=== PATIENT | female | born 1995 | race Caucasian/White ===

== ENCOUNTER 2020-09-07 14:10 | Outpatient (CLI) | payer BC, SELFPAY ==
[2020-09-07 14:53] LABS: Basophils Percent Auto 0.4 % (0.2-1.2); Eosinophils Absolute Auto 0.1 K/mm3 (0-0.3); Eosinophils Percent Auto 0.5 % (0-4.4); Hematocrit 39.7 % (37.0-47.0); Hemoglobin 13.8 g/dL (12.0-15.0); Immature Granulocyte Absolute 0.02 K/mm3 (0.00-0.031); Immature Granulocyte Percent A 0.2 % (0-0.5); Lymphocytes Absolute Auto 2.44 K/mm3 (0.9-3.2); Lymphocytes Percent Auto 25.5 % (18.3-44.2); Mean Corpuscular HGB Conc 34.8 g/dl (32-36); Mean Corpuscular Hemoglobin 31.7 pg (26-34); Mean Corpuscular Volume 91.1 fl (80-100); Mean Platelet Volume 9.9 fl (7.4-10.4); Monocytes Absolute Auto 0.5 K/mm3 (0.1-0.6); Neutrophils Absolute Auto 6.5 K/mm3 (1.3-6.7); Neutrophils Percent Auto 68.4 % (45.5-73.1); Platelet Count Result 290 k/mm3 (150-375); Red Blood Count 4.36 M/mm3 (4.2-5.4); Red Cell Distribution Width 10.8 % (11.5-14.5); White Blood Count 9.6 K/mm3 (4.5-10.0)
[2020-09-07 17:12] LABS: HIV 1/2 Ab P24 Ag Result Negative (Negative)
[2020-09-07 17:17] LABS: Vitamin D 25 Hydroxy 39.3 ng/mL
[2020-09-07 17:34] LABS: Hepatitis B Surface Antigen Negative (Negative); Rubella IgG Antibody 35.5 IU/ML
[2020-09-07 17:47] LABS: Hepatitis C Virus Antibody Negative (Negative)
[2020-09-08 10:51] LABS: Rapid Plasma Reagin Non-Reactive (NonReactive)
[2020-09-14 01:00] LABS: Hematocrit 39.4 % (35.0-45.0); Hemoglobin 13.6 g/dL (11.7-15.5); MCH 31.9 pg (27.0-33.0); MCV 92.7 FL (80.0-100.0); RDW 11.6 % (11.0-15.0); Red Blood Cell Count 4.26 Mill/uL (3.80-5.10)
== END 2020-09-07 14:11 | disposition home or self-care (01) ==
PROVIDERS: Visit Provider Obstetrics & Gynecology
DX: Z34.90 Encounter for supervision of normal pregnancy, unspecified, unspecified trimester (principal); Z3A.00 Weeks of gestation of pregnancy not specified
CPT/HCPCS: 36415; 82306; 83021; 84443; 85025; 86592; 86703; 86762; 86787; 86803; 86850; 86900; 86901; 87340; G0432

== ENCOUNTER 2021-01-26 08:37 | Outpatient (CLI) | payer BC, SELFPAY ==
[2021-01-26 19:14] LABS: Basophils Absolute Auto 0.1 K/mm3 (0.0-0.1); Basophils Percent Auto 0.4 % (0.2-1.2); Eosinophils Absolute Auto 0.1 K/mm3 (0-0.3); Eosinophils Percent Auto 0.8 % (0-4.4); Hematocrit 37.6 % (37.0-47.0); Hemoglobin 12.5 g/dL (12.0-15.0); Immature Granulocyte Absolute 0.04 K/mm3 (0.00-0.031); Immature Granulocyte Percent A 0.4 % (0-0.5); Lymphocytes Absolute Auto 2.27 K/mm3 (0.9-3.2); Lymphocytes Percent Auto 20.3 % (18.3-44.2); Mean Corpuscular HGB Conc 33.2 g/dl (32-36); Mean Corpuscular Hemoglobin 31.6 pg (26-34); Mean Corpuscular Volume 94.9 fl (80-100); Monocytes Absolute Auto 0.6 K/mm3 (0.1-0.6); Monocytes Percent Auto 5.6 % (2.6-8.5); Neutrophils Absolute Auto 8.1 K/mm3 (1.3-6.7); Neutrophils Percent Auto 72.5 % (45.5-73.1); Platelet Count Result 299 k/mm3 (150-375); Red Blood Count 3.96 M/mm3 (4.2-5.4); Red Cell Distribution Width 11.9 % (11.5-14.5); White Blood Count 11.2 K/mm3 (4.5-10.0)
[2021-01-26 21:53] LABS: Glucose 1 Hour PP 50gm Dose 90 mg/dL
== END 2021-01-26 08:38 | disposition home or self-care (01) ==
LOC: ANHBWCLAB 08:39
PROVIDERS: Visit Provider Obstetrics & Gynecology
DX: Z34.90 Encounter for supervision of normal pregnancy, unspecified, unspecified trimester (principal); Z3A.23 23 weeks gestation of pregnancy
CPT/HCPCS: 36415; 82947; 85025

== ENCOUNTER 2021-03-04 09:55 | Outpatient (CLI) | payer BC, SELFPAY ==
[2021-03-04 10:13] LABS: Basophils Absolute Auto 0.1 K/mm3 (0.0-0.1); Basophils Percent Auto 0.6 % (0.2-1.2); Eosinophils Absolute Auto 0.1 K/mm3 (0-0.3); Eosinophils Percent Auto 0.6 % (0-4.4); Hematocrit 38.1 % (37.0-47.0); Hemoglobin 13.3 g/dL (12.0-15.0); Immature Granulocyte Absolute 0.04 K/mm3 (0.00-0.031); Immature Granulocyte Percent A 0.4 % (0-0.5); Lymphocytes Absolute Auto 2.61 K/mm3 (0.9-3.2); Lymphocytes Percent Auto 24.2 % (18.3-44.2); Mean Corpuscular HGB Conc 34.9 g/dl (32-36); Mean Corpuscular Hemoglobin 32.9 pg (26-34); Mean Corpuscular Volume 94.3 fl (80-100); Monocytes Absolute Auto 0.7 K/mm3 (0.1-0.6); Monocytes Percent Auto 6.2 % (2.6-8.5); Neutrophils Absolute Auto 7.3 K/mm3 (1.3-6.7); Platelet Count Result 235 k/mm3 (150-375); Red Blood Count 4.04 M/mm3 (4.2-5.4); Red Cell Distribution Width 11.6 % (11.5-14.5); White Blood Count 10.8 K/mm3 (4.5-10.0)
[2021-03-04 11:06] LABS: HIV 1/2 Ab P24 Ag Result Negative (Negative)
[2021-03-07 07:23] LABS: Rapid Plasma Reagin Non-Reactive (NonReactive)
== END 2021-03-04 09:56 | disposition home or self-care (01) ==
PROVIDERS: PCP Family Medicine; Visit Provider Obstetrics & Gynecology
DX: Z36.89 Encounter for other specified antenatal screening (principal); Z3A.32 32 weeks gestation of pregnancy
CPT/HCPCS: 36415; 85025; 86592; 86703; G0432

== ENCOUNTER 2021-04-11 13:03 | Inpatient (IN) | payer BC, SELFPAY ==
[2021-04-11] VITALS (56 sets, daily range): BP systolic 126–181; BP diastolic 79–123; PULSE 50–85; TEMP 37–37.2; O2SAT 97–100
--- NOTE | ~2021-04-11 | XR_ITS ---
EXAMINATION: XR chest 1V portable 04/12/2021 15:49 INDICATION: Shortness of breath. Preeclampsia. Hypertension. PROCEDURE: AP portable chest COMPARISON: No prior studies for comparison. FINDINGS: The lungs are clear. The cardiomediastinal silhouette is within normal limits. There are no pleural effusions. There is no pneumothorax suspected. IMPRESSION: 1: NO ACUTE CARDIOPULMONARY DISEASE. Reviewed, dictated and finalized at location B. 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
[2021-04-11 14:00] LABS: Add Urine Microscopic? NO; Appearance Urine Clear (Clear); Bilirubin Urine Negative (Negative); Blood Urine Negative (Negative); Color Urine Straw (Yellow); Glucose Urine UA Negative (Negative); Ketones Urine Negative (Negative); Leukocyte Esterase Ur Negative LEU/UL (NEGATIVE); Nitrate Urine Negative (Negative); Protein Urine Negative (Negative); Specific Grav Ur 1.005 (1.001-1.035); Urobilinogen Urine Negative mg/dL (<2.0)
[2021-04-11 14:01] LABS: Basophils Absolute Auto 0.1 K/mm3 (0.0-0.1); Basophils Percent Auto 0.7 % (0.2-1.2); Eosinophils Absolute Auto 0.1 K/mm3 (0-0.3); Eosinophils Percent Auto 0.6 % (0-4.4); Hematocrit 36.2 % (37.0-47.0); Hemoglobin 12.6 g/dL (12.0-15.0); Immature Granulocyte Absolute 0.06 K/mm3 (0.00-0.031); Immature Granulocyte Percent A 0.6 % (0-0.5); Immature Platelet Fraction Pct 19.3 % (0.9-11.2); Lymphocytes Absolute Auto 3.18 K/mm3 (0.9-3.2); Lymphocytes Percent Auto 31.9 % (18.3-44.2); Mean Corpuscular HGB Conc 34.8 g/dl (32-36); Mean Corpuscular Hemoglobin 33.2 pg (26-34); Mean Corpuscular Volume 95.5 fl (80-100); Mean Platelet Volume 13.3 fl (7.4-10.4); Monocytes Absolute Auto 0.6 K/mm3 (0.1-0.6); Monocytes Percent Auto 5.5 % (2.6-8.5); Neutrophils Absolute Auto 6.1 K/mm3 (1.3-6.7); Neutrophils Percent Auto 60.7 % (45.5-73.1); Platelet Count Result 157 k/mm3 (150-375); Red Blood Count 3.79 M/mm3 (4.2-5.4); Red Cell Distribution Width 11.7 % (11.5-14.5)
[2021-04-11 14:07] LABS: Alanine Aminotransferase 36 U/L (4-35); Albumin Level 3.7 g/dL (3.5-5.1); Alkaline Phosphatase 148 U/L (38-126); Anion Gap 6 mmol/L (8-16); Aspartate Amino Transferase 38 U/L (14-36); Bilirubin,Total 0.3 mg/dL (0.2-1.3); Blood Urea Nitrogen 19 mg/dL (7-17); Calcium 9.8 mg/dL (8.4-10.2); Carbon Dioxide 22 mmol/L (22-30); Chloride 103 mmol/L (98-107); Estimated Glomerular Filt Rate > 60; Glucose 99 mg/dL (65-110); Potassium 3.8 mmol/L (3.4-5.0); Sodium 131 mmol/L (137-145)
[2021-04-11 15:40] LABS: Creatinine Urine 19.3 mg/dL; Total Protein Urine Random 36 mg/dL; Ur Ttl Prot Creatinine Ratio 1.87 mg/mg (0-0.20)
[2021-04-11 17:36] LABS: INR 0.8
[2021-04-11 17:37] LABS: Partial Thromboplastin Time 25.3 SECONDS (22.3-36.8)
[2021-04-11 17:42] LABS: Fibrinogen 333 mg/dl (215-510)
[2021-04-11] MEDS: LABETALOL HCL INJ 100 MG/20 ML VIAL 20 MG IV PUSH (18:04)
--- NOTE | 2021-04-11 19:22 | LDADM ---
This patient, Gabriella Mello, was admitted to Labor/Delivery/Recovery 104 on 04/11/21 at 13:03. Plans for labor, pain management and were discussed with patient. Patient/family oriented to hospital policies and general routines including ID bracelet, bed and alarms, visiting hours, pain management, procedures, bathroom and other care routines, personal items, smoking policy, room service/diet and guest tray routines, infant security routines, and visiting hours. Patient/Family are encouraged to report perceived risks to care and to ask questions if they do not understand what they are told or what they should do. See OBIX for further documentation.
[2021-04-11] MEDS: LACTATED RINGERS 1,000 ML 125 ML IV CONT (19:34)
[2021-04-11] MEDS: OXYTOCIN 30 UNITS/NS 500 ML 30 UNITS/500 ML BAG 6 UNITS IV CONT (19:36)
[2021-04-11] MEDS: fentaNYL CITRATE INJ (*CRX) 100 MCG/2 ML VIAL 50 MCG IV PUSH (22:24)
[2021-04-12] VITALS (151 sets, daily range): BP systolic 105–175; BP diastolic 31–148; PULSE 42–131; RESP 16–36; TEMP 36.4–37.1; O2SAT 94–100; BMI 25.5
[2021-04-12] MEDS: fentaNYL CITRATE INJ (*CRX) 100 MCG/2 ML VIAL 50 MCG IV PUSH (00:58)
[2021-04-12] MEDS: MAGNESIUM SULF 4 GM/WATER100ML 4 GM/100 ML BAG IVPB (01:17)
--- NOTE | 2021-04-12 01:53 | WPDANESEPP ---
Anes - Eval Pre Procedure Procedure: Labor epidural Date/Time: 04/12/21 01:53 Surgeon: Rakan Preop Diagnosis: Abd pain with contractions Pre Op Diagnosis: MIL Patient Data Age: 25 Gender: F Height: Weight: Last Vital Signs Temp 98.9 F 04/11/21 19:20 Pulse 79 04/12/21 01:52 BP 160/103 H 04/12/21 01:52 Pulse Ox 99 04/12/21 01:49 Allergies Allergy/AdvReac Type Severity Reaction Status Date / Time No Known Allergies Allergy Verified 04/11/21 19:58 Home Medications Medication Instructions Recorded Confirmed Type omega-3 fatty acids 1,000 mg 1,000 mg PO DAILY 08/26/20 04/11/21 History capsule prenat.vits,brian,kei-bfrw-zzwee 1 tablet PO DAILY 08/26/20 04/11/21 History Laboratory Tests 04/11/21 04/11/21 04/11/21 13:43 13:43 13:44 WBC 10.0 K/mm3 K/mm3 (4.5-10.0) RBC 3.79 M/mm3 L M/mm3 (4.2-5.4) Hgb 12.6 g/dL g/dL (12.0-15.0) Hct 36.2 % L % (37.0-47.0) MCV 95.5 fl fl (80-100) MCH 33.2 pg pg (26-34) MCHC 34.8 g/dl g/dl (32-36) RDW 11.7 % % (11.5-14.5) Plt Count 157 k/mm3 k/mm3 (150-375) MPV 13.3 fl H fl (7.4-10.4) Immature Gran % (Auto) 0.6 % H % (0-0.5) Neut % (Auto) 60.7 % % (45.5-73.1) Lymph % (Auto) 31.9 % % (18.3-44.2) [place] % (Auto) 5.5 % % (2.6-8.5) Eos % (Auto) 0.6 % % (0-4.4) Baso % (Auto) 0.7 % % (0.2-1.2) Lymph # (Auto) 3.18 K/mm3 K/mm3 (0.9-3.2) [place] # (Auto) 0.6 K/mm3 K/mm3 (0.1-0.6) Eos # (Auto) 0.1 K/mm3 K/mm3 (0-0.3) Baso # (Auto) 0.1 K/mm3 K/mm3 (0.0-0.1) Abs Immat Gran (auto) 0.06 K/mm3 H K/mm3 (0.00-0.031) Absolute Neuts (auto) 6.1 K/mm3 K/mm3 (1.3-6.7) Absolute Nucleated RBC 0.0 K/mm3 K/mm3 (0.0-0.012) Nucleated RBC % 0.0 % % (0.0-0.2) % Immature Plt Fraction 19.3 % H % (0.9-11.2) PT INR APTT Fibrinogen Sodium 131 mmol/L L mmol/L (137-145) Potassium 3.8 mmol/L mmol/L (3.4-5.0) Chloride 103 mmol/L mmol/L (98-107) Carbon Dioxide 22 mmol/L mmol/L (22-30) Anion Gap 6 mmol/L L mmol/L (8-16) BUN 19 mg/dL H mg/dL (7-17) Creatinine 0.90 mg/dL mg/dL (0.7-1.0) Estim Creat Clear Calc Not Reportable Estimated GFR > 60 (59 - ) Glucose 99 mg/dL mg/dL (65-110) Uric Acid 7.0 mg/dL mg/dL (2.5-7.5) Calcium 9.8 mg/dL mg/dL (8.4-10.2) Total Bilirubin 0.3 mg/dL mg/dL (0.2-1.3) AST 38 U/L H U/L (14-36) ALT 36 U/L H U/L (4-35) Alkaline Phosphatase 148 U/L H U/L (38-126) Total Protein 6.0 g/dL L g/dL (6.3-8.2) Albumin 3.7 g/dL g/dL (3.5-5.1) Urine Color Straw (Yellow) Urine Appearance Clear (Clear) Urine pH 7.0 (5.0-9.0) Ur Specific [place] 1.005 (1.001-1.035) Urine Protein Negative mg/dL mg/dL (Negative) Urine Glucose (UA) Negative mg/dL mg/dL (Negative) Urine Ketones Negative mg/dL mg/dL (Negative) Ur Blood (Man) Negative (Negative) Urine Nitrate Negative (Negative) Urine Bilirubin Negative (Negative) Urine Urobilinogen Negative mg/dL mg/dL (<2.0) Ur Leukocyte Esterase Negative CHARITO/UL CHARITO/UL (NEGATIVE) U Random Total Protein Urine Creatinine Protein/Creat Ratio 2 RPR Blood Type Antibody Screen 04/11/21 04/11/21 04/11/21 13:44 17:06 17:06 WBC RBC Hgb Hct MCV MCH MCHC RDW Plt Count MPV Immatu
[2021-04-12] MEDS: MAGNESIUM SULF 20GM/WATER500ML 500 ML 50 MG IV CONT ×2 (02:13→12:29)
--- NOTE | 2021-04-12 05:13 | PM.IMHP ---
H&P: HPI History of Present Illness Date/Time: 04/11/21 1700 Patient is at 37 6/7 days established by 6 week ultrasound which was not consistent with edc by LMP of 07/14/20, admitted for MIL for pre-eclampsia with severe range blood pressures and elevated liver enzymes, platelets decreased from prior labs. She was seen for PAULINA visit today and blood pressures 140/90, no headache, scotomata or right upper quadrant pain. She states she has been mildly nauseated for one week, no midepigastric pain or emesis. She was sent for evaluation on L and D and blood pressures remained labile and had increased to 170s, diastolic upper 90s. The severe range blood pressures did improve with Labetolol. Her pr/cr ratio 1.87. She was recommended for medical induction of labor for pre- eclampsia with severe features. PNC uncomplicated except for COVID in December. She had last ultrasound 03/24 for size less than dates and EFW was 19%. She has had mild swelling in hands for a day. Labs reviewed. GBS neg. Chief Complaint: Pre-eclampsia. Review of Systems Review of Systems: All systems reviewed & are unremarkable except as noted in HPI and below Constitutional: Constitutional: Reports no additional constitutional complaints and Denies headache(s) Eyes: Eyes: Denies spots in vision ENT: Reports system reviewed and no additional complaints, except as documented and Denies headache(s) Cardiovascular: Cardiovascular: Denies chest pain and Denies dyspnea Respiratory: Respiratory: Denies dyspnea Gastrointestinal: Gastrointestinal: Reports no additional gastrointestinal complaints Genitourinary: Genitourinary: Reports amenorrhea Musculoskeletal: Musculoskeletal: Reports no additional musculoskeletal complaints Integumentary/Breasts: Skin/Breast: Denies breast mass and Denies rash Neurologic: Denies headache(s) Psychiatric: Psychiatric: Reports no additional psychiatric complaints [facility] Past Medical History Medical History (Updated 04/12/21 @ 05:23 by Jed Bledsoe MD) PIH ( induced hypertension) Surgical History Surgical History [place] teeth extracted Family History Family History Father Diabetes mellitus Chronic obstructive pulmonary disease Grandparent Alzheimer disease A-fib S/P CABG x 4 Hypertension Lung cancer Mother Hypertension Social History Social History Smoking status: Never smoker Alcohol intake: former Alcohol use details: Not since Substance use: never Spiritual care concerns: No Meds Home Medications and Allergies Home Medications Medication Instructions Recorded Confirmed Type omega-3 fatty acids 1,000 mg 1,000 mg PO DAILY 08/26/20 04/11/21 History capsule prenat.vits,brian,jgs-lbze-ddaxa 1 tablet PO DAILY 08/26/20 04/11/21 History Allergies Allergy/AdvReac Type Severity Reaction Status Date / Time No Known Allergies Allergy Verified 04/11/21 19:58 Vital Signs Vital Signs - 24 hr 04/11/21 13:33 04/11/21 13:46 04/11/21 14:01 Temperature Pulse Rate 60 64 59 L Blood Pressure 151/94 H 139/84 127/85 Blood Pressure [Right Arm] Pulse Oximetry 04/11/21 14:16 04/11/21 14:25 04/11/21 14:31 Temperature Pulse Rate 64 66 57 L Blood Pressure 126/85 143/87 H Blood Pressure [Right Arm] 139/84 Pulse Oximetry 04/11/21 14:46 04/11/21 15:01 04/11/21 15:16 Temperature Pulse Rate 55 L 57 L 54 L Blood Pressure 161/86 H 166/96 H 164/90 H Blood Pressure [Right Arm] Pulse Oximetry 04/11/21 15:31 04/11/21 15:46 04/11/21 16:01 Temperature Pulse Rate 52 L 53 L 55 L Blood Pressure 151/86 H 148/79 H 154/84 H Blood Pressure [Right Arm] Pulse Oximetry 04/11/21 16:16 04/11/21 16:31 04/11/21 16:46 Temperature Pulse Rate 53 L 51 L 54 L Bl
[2021-04-12] MEDS: OXYTOCIN 30 UNITS/NS 500 ML 30 UNITS/500 ML BAG 125 UNITS IV CONT (05:18)
--- NOTE | 2021-04-12 05:27 | PM.OBPNVD ---
OB - PN: Subj Subjective Date/time seen: 04/02/212054 FHT 135 Cat 1, ctx irreg q 6, cervix 2.5/90/-2, AROM clear. Continue pitocin induction. OB - PN: Obj Data Labs CBC & Chem 7: 04/11/21 13:43 04/11/21 13:43 Labs: Laboratory Results - last 24 hr 04/11/21 04/11/21 04/11/21 13:43 13:43 13:44 WBC 10.0 RBC 3.79 L Hgb 12.6 Hct 36.2 L MCV 95.5 MCH 33.2 MCHC 34.8 RDW 11.7 Plt Count 157 MPV 13.3 H Immature Gran % (Auto) 0.6 H Neut % (Auto) 60.7 Lymph % (Auto) 31.9 [place] % (Auto) 5.5 Eos % (Auto) 0.6 Baso % (Auto) 0.7 Lymph # (Auto) 3.18 [place] # (Auto) 0.6 Eos # (Auto) 0.1 Baso # (Auto) 0.1 Abs Immat Gran (auto) 0.06 H Absolute Neuts (auto) 6.1 Absolute Nucleated RBC 0.0 Nucleated RBC % 0.0 % Immature Plt Fraction 19.3 H PT INR APTT Fibrinogen Sodium 131 L Potassium 3.8 Chloride 103 Carbon Dioxide 22 Anion Gap 6 L BUN 19 H Creatinine 0.90 Estim Creat Clear Calc Not Reportable Estimated GFR > 60 Glucose 99 Uric Acid 7.0 Calcium 9.8 Total Bilirubin 0.3 AST 38 H ALT 36 H Alkaline Phosphatase 148 H Total Protein 6.0 L Albumin 3.7 Urine Color Straw Urine Appearance Clear Urine pH 7.0 Ur Specific [place] 1.005 Urine Protein Negative Urine Glucose (UA) Negative Urine Ketones Negative Ur Blood (Man) Negative Urine Nitrate Negative Urine Bilirubin Negative Urine Urobilinogen Negative Ur Leukocyte Esterase Negative U Random Total Protein Urine Creatinine Protein/Creat Ratio 2 Blood Type Antibody Screen 04/11/21 04/11/21 04/11/21 13:44 17:06 17:06 WBC RBC Hgb Hct MCV MCH MCHC RDW Plt Count MPV Immature Gran % (Auto) Neut % (Auto) Lymph % (Auto) [place] % (Auto) Eos % (Auto) Baso % (Auto) Lymph # (Auto) [place] # (Auto) Eos # (Auto) Baso # (Auto) Abs Immat Gran (auto) Absolute Neuts (auto) Absolute Nucleated RBC Nucleated RBC % % Immature Plt Fraction PT 11.0 L INR 0.8 APTT 25.3 Fibrinogen 333 Sodium Potassium Chloride Carbon Dioxide Anion Gap BUN Creatinine Estim Creat Clear Calc Estimated GFR Glucose Uric Acid Calcium Total Bilirubin AST ALT Alkaline Phosphatase Total Protein Albumin Urine Color Urine Appearance Urine pH Ur Specific [place] Urine Protein Urine Glucose (UA) Urine Ketones Ur Blood (Man) Urine Nitrate Urine Bilirubin Urine Urobilinogen Ur Leukocyte Esterase U Random Total Protein 36 Urine Creatinine 19.3 Protein/Creat Ratio 2 1.87 H Blood Type O Positive Antibody Screen Negative OB - PN A/P Time Spent With Patient Time: Total time spent is greater than 50% in coordination of care (as documented) at patient's floor/unit and/or counseling patient:
--- NOTE | 2021-04-12 05:31 | PM.OBPRVD ---
OB - Delivery Note Procedure Delivery date: 04/12/21 Procedure: Spontaneous vaginal delivery events: Pre-Eclampsia and Labor Induction Induction method: per pitocin protocol Delivery augmentation: rupture of membranes Delivery monitor: external FHT Route of delivery: Episiotomy description: Left Mediolateral Laceration Description: Perineal - 3rd Degree (partial third degree extension) Delivery repair: vicryl (3.0 vicryl) Specimen: Yes (Placenta and cord) Quantitative Blood Loss (ml): 350 Anesthesia type: Epidural Disposition: floor Complications: None Narrative: Patient admitted for medical induction of labor for pre-eclampsia with severe features. Cervix was favorable. Pitocin induction was initiated. She had AROM clear fluid at 2054. She progressed to complete. Second stage of labor with late decelerations. Oxygen administered and a mediolateral episiotomy performed and she delivered after the episiotomy. Infant nose mouth suctioned with bulb. placed on maternal abdomen. Delayed cord clamping for approximately 45 seconds. Cord blood and cord gases obtained. Placenta will be sent to path for preeclampsia. [place] Baby Date of : 04/12/21 Time of : 04:38 Weeks of gestation at delivery: 38 Infant gender: Female Weight (pounds): 5 Weight (ounces): 11 presentation: vertex position: Right Occiput Anterior Placenta delivery description: Spontaneous score one minute: 9 score five minutes: 9
[2021-04-12] MEDS: LACTATED RINGERS 1,000 ML 75 ML IV CONT (08:27)
[2021-04-12 08:37] LABS: Rapid Plasma Reagin Non-Reactive (NonReactive)
--- NOTE | 2021-04-12 08:50 | PC.NURSE ---
Patient transferred to post room # 285 via wheelchair. Support person present. Oriented to unit, room, information board, rooming in, admission packet and security measures. Patient verbalizes understanding.
[2021-04-12] MEDS: HYDROcodone/acetaminophen (*CRX) 5-325 MG TABLET 1 TAB PO ×2 (09:33→15:43)
[2021-04-12] MEDS: IBUPROFEN 600 MG TABLET PO ×2 (09:33→15:42)
--- NOTE | 2021-04-12 10:15 | PC.NURSE ---
Mother called out for assist with feeding. Reviewed feeding cues, frequencies, duration of feedings, feeding elimination flow sheet, and signs of adequate intake. Demonstrated stimulation techniques to wake infant for feeding. Assisted with infant to breast. Reviewed positioning/alignment, holding breast and asymmetrical latch on. was able to latch correctly. nursed weakly for a short burst releasing latch and falling asleep. Several attempts made. Mother is very tired and sleepy from delivery and mediations. Requesting infant be bottle fed this feeding.
--- NOTE | 2021-04-12 14:20 | PC.NURSE ---
Mother called out for assist with feeding. Infant is able to freely thrust tongue past gum ridge and flange both lips. Skin is intact on both nipples, no redness and bruising noted. Reviewed feeding cues, frequencies, duration of feedings, feeding elimination flow sheet, and signs of adequate intake. Demonstrated stimulation techniques to wake for feeding. Assisted with infant to breast. Reviewed positioning/alignment in cross cradle, holding breast in ?U? hold and guided asymmetrical latch on. Reviewed rational for each. able to latch correctly within a few attempts. Infant nursed eagerly with steady draws and occasional swallowing noted, some pausing noted. Reviewed signs of a correct latch, effective nursing and suck swallow ratio. Suggested mother stimulate while feeding to increase stimulation for milk supply, for increased intake and to assist with maintaining deep latch. Infant would slip to shallow latch causing tenderness. Demonstrated how to adjust latch more deeply while feeding as needed. Mother reports she can feel the difference in latch with no tenderness. Nipple care reviewed of lanolin after feedings, warm compresses as needed. Instructed mother to call out for RN assistance if she is unable to latch infant for feeding or she has discomfort with nursing. Instructed feeding should be initiated three hours from start of last feeding or if feeding cues are noted before. Mother voiced understanding of information shared.
--- NOTE | 2021-04-12 15:02 | PC.NURSE ---
Notified Dr. Bledsoe of patient's status, headache, blurred vision, flushing, increased BP. Verbal order from Dr. Bledsoe for Labetalol 200 mg q12, cbc, cmp, and mag level. Dr. Bledsoe will be in to assess patient.
[2021-04-12 15:42] LABS: Hematocrit 35.3 % (37.0-47.0); Hemoglobin 12.5 g/dL (12.0-15.0); Mean Corpuscular HGB Conc 35.4 g/dl (32-36); Mean Corpuscular Hemoglobin 33.6 pg (26-34); Mean Corpuscular Volume 94.9 fl (80-100); Platelet Count Result 209 k/mm3 (150-375); Red Blood Count 3.72 M/mm3 (4.2-5.4); White Blood Count 24.4 K/mm3 (4.5-10.0)
[2021-04-12] MEDS: LABETALOL HCL 100 MG TABLET 200 MG PO (15:44)
[2021-04-12 16:00] LABS: Albumin Level 3.9 g/dL (3.5-5.1); Alkaline Phosphatase 197 U/L (38-126); Anion Gap 14 mmol/L (8-16); Aspartate Amino Transferase 59 U/L (14-36); Bilirubin,Total 0.3 mg/dL (0.2-1.3); Blood Urea Nitrogen 14 mg/dL (7-17); Calcium 6.8 mg/dL (8.4-10.2); Carbon Dioxide 18 mmol/L (22-30); Chloride 101 mmol/L (98-107); Estimated CRCL calculation 69 ml/min; Estimated Glomerular Filt Rate > 60; Glucose 115 mg/dL (65-110); Magnesium 8.4 mg/dL (1.6-2.3); Sodium 133 mmol/L (137-145)
[2021-04-12 16:08] LABS: Alanine Aminotransferase 46 U/L (4-35)
--- NOTE | 2021-04-12 16:48 | PC.NURSE ---
1515-Dr. Bledsoe here to assess patient.
[2021-04-12] MEDS: LACTATED RINGERS 1,000 ML 125 ML IV CONT (21:29)
[2021-04-12 23:29] LABS: Hematocrit 28.6 % (37.0-47.0); Mean Corpuscular Hemoglobin 33.8 pg (26-34); Mean Corpuscular Volume 96.6 fl (80-100); Mean Platelet Volume 12.6 fl (7.4-10.4); Platelet Count Result 139 k/mm3 (150-375); Red Blood Count 2.96 M/mm3 (4.2-5.4); Red Cell Distribution Width 12.2 % (11.5-14.5); White Blood Count 14.2 K/mm3 (4.5-10.0)
[2021-04-12 23:45] LABS: Alanine Aminotransferase 28 U/L (4-35); Aspartate Amino Transferase 40 U/L (14-36); Magnesium 6.1 mg/dL (1.6-2.3)
[2021-04-13] VITALS (10 sets, daily range): BP systolic 114–138; BP diastolic 75–88; PULSE 68–78; RESP 16–18; TEMP 36.8–37.3; O2SAT 97–100
[2021-04-13] MEDS: IBUPROFEN 600 MG TABLET PO ×3 (00:02→17:48)
[2021-04-13] MEDS: HYDROcodone/acetaminophen (*CRX) 5-325 MG TABLET 1 TAB PO ×4 (00:03→22:39)
[2021-04-13] MEDS: LABETALOL HCL 100 MG TABLET 200 MG PO ×2 (03:34→17:47)
--- NOTE | 2021-04-13 08:00 | PC.NURSE ---
PT introductions made and plan of care discussed per post , pain management, breast feeding, post magnesium, daily care activities. PT sole recipient of such instructions, PT received instructions per one to one discussion, mom baby care guide and demonstrations. No barriers to learning identified at this time. PT verbalized understanding of such care.
--- NOTE | 2021-04-13 08:16 | PM.OBPNVD ---
OB - PN: Subj Subjective Date/time seen: 04/13/21 08:16 No headache or scotomata or RUQ pain. Has not ambulated since Magnesium off this am. No leg pain. Has adequate pain control. Patient comments: pain well controlled, tolerating diet and other (Decreasing lochia.) [place] baby status: doing well OB - PN: Obj Data Labs CBC & Chem 7: 04/12/21 23:21 04/12/21 15:34 Labs: Laboratory Results - last 24 hr 04/11/21 04/12/21 04/12/21 17:06 15:34 15:34 WBC 24.4 H RBC 3.72 L Hgb 12.5 Hct 35.3 L MCV 94.9 MCH 33.6 MCHC 35.4 RDW 12.0 Plt Count 209 MPV 13.0 H Sodium 133 L Potassium 4.0 Chloride 101 Carbon Dioxide 18 L Anion Gap 14 BUN 14 D Creatinine 0.90 Estim Creat Clear Calc 69 Estimated GFR > 60 Glucose 115 H Calcium 6.8 L Magnesium 8.4 H Total Bilirubin 0.3 AST 59 H ALT 46 H Alkaline Phosphatase 197 H Total Protein 7.0 Albumin 3.9 RPR Non-reactive 04/12/21 04/12/21 23:21 23:21 WBC 14.2 H RBC 2.96 L Hgb 10.0 L Hct 28.6 L MCV 96.6 MCH 33.8 MCHC 35.0 RDW 12.2 Plt Count 139 L MPV 12.6 H Sodium Potassium Chloride Carbon Dioxide Anion Gap BUN Creatinine Estim Creat Clear Calc Estimated GFR Glucose Calcium Magnesium 6.1 H Total Bilirubin AST 40 H ALT 28 Alkaline Phosphatase Total Protein Albumin RPR Imaging Radiologist's impression: Impressions Chest X-Ray 04/12/21 15:50 IMPRESSION: 1: NO ACUTE CARDIOPULMONARY DISEASE. OB - PN A/P Plan day: 1 Plan: routine care Comments: Patient doing well. No pre- e symptoms. Blood pressures doing well on Labetolol. Time Spent With Patient Time: Total time spent is greater than 50% in coordination of care (as documented) at patient's floor/unit and/or counseling patient: Exam Psych: Affect: normal affect Other: Abd: fundus firm below umbilicus, nontender Perineum: healing Ext: nontender
--- NOTE | 2021-04-13 08:20 | PM.OBPNVD ---
OB - PN: Subj Subjective Date/time seen: 04/13/21 08:20 Late entry. Patient evaluated at approximately 315pm on 04/11 due to nurse call of her having tachypnea and vision issues, increased bp. I had seen her she denied scotomata. She was having hard time focusing which I informed her is a side effect of Mag. Mg level drawn and pre e labs. On exam her lungs clear, tachy rate rhythm. DTR 3+ neg clonus. She was not able to void though had the urge and it had been a while since prior void. On exam. Bladder full. She had catheter placed with large volume urine released. Her mag level was reported to me at 8 and I instructed her Mag infusion to decrease to 1gm. She had chest xray normal. Her symptoms improved after Mg decreased. Repeat Mg level ordered for 6 hour after the change of dose. OB - PN: Obj Data Labs CBC & Chem 7: 04/12/21 23:21 04/12/21 15:34 Labs: Laboratory Results - last 24 hr 04/11/21 04/12/21 04/12/21 17:06 15:34 15:34 WBC 24.4 H RBC 3.72 L Hgb 12.5 Hct 35.3 L MCV 94.9 MCH 33.6 MCHC 35.4 RDW 12.0 Plt Count 209 MPV 13.0 H Sodium 133 L Potassium 4.0 Chloride 101 Carbon Dioxide 18 L Anion Gap 14 BUN 14 D Creatinine 0.90 Estim Creat Clear Calc 69 Estimated GFR > 60 Glucose 115 H Calcium 6.8 L Magnesium 8.4 H Total Bilirubin 0.3 AST 59 H ALT 46 H Alkaline Phosphatase 197 H Total Protein 7.0 Albumin 3.9 RPR Non-reactive 04/12/21 04/12/21 23:21 23:21 WBC 14.2 H RBC 2.96 L Hgb 10.0 L Hct 28.6 L MCV 96.6 MCH 33.8 MCHC 35.0 RDW 12.2 Plt Count 139 L MPV 12.6 H Sodium Potassium Chloride Carbon Dioxide Anion Gap BUN Creatinine Estim Creat Clear Calc Estimated GFR Glucose Calcium Magnesium 6.1 H Total Bilirubin AST 40 H ALT 28 Alkaline Phosphatase Total Protein Albumin RPR Imaging Radiologist's impression: Impressions Chest X-Ray 04/12/21 15:50 IMPRESSION: 1: NO ACUTE CARDIOPULMONARY DISEASE. OB - PN A/P Time Spent With Patient Time: Total time spent is greater than 50% in coordination of care (as documented) at patient's floor/unit and/or counseling patient:
--- NOTE | 2021-04-13 09:00 | PC.NURSE ---
Primary RN called out to assist with feeding, mother reporting tenderness with latch. is able to freely thrust tongue past gum ridge and flange both lips. Skin is intact on both nipples, no redness and bruising noted. Mother is feeling better this day and has been most of the night. RN has infant latched. Reviewed feeding cues, frequencies, duration of feedings, feeding elimination flow sheet, and signs of adequate intake. Reviewed positioning/alignment in cross cradle, holding breast in ?U? hold and guided asymmetrical latch on. Reviewed rational for each. Infant was latched correctly within a few attempts. nursed eagerly with steady draws and occasional swallowing noted,followed with long pausing. Mother reports is sleepy this feeding and has been more eager with nursing other feedings. Reviewed signs of a correct latch, effective nursing and suck swallow ratio. Suggested mother stimulate while feeding to increase stimulation for milk supply, for increased intake and to assist with maintaining deep latch. Infant would slip to shallow latch causing tenderness. Demonstrated how to adjust latch more deeply while feeding as needed. Mother reports she can feel the difference in latch with less tenderness. Nipple care reviewed of lanolin after feedings, warm compresses as needed. Instructed mother to call out for RN assistance if she is unable to latch for feeding or she has discomfort with nursing. Instructed feeding should be initiated three hours from start of last feeding or if feeding cues are noted before. Mother voiced understanding of information shared.
--- NOTE | 2021-04-13 10:19 | WPDANLDPN2 ---
Anes-Prog Note L&D Date/Time: 04/13/21 10:19 Comfortable throughout: labor and delivery Neuraxial method: epidural Epidural/Spinal procedure site: clean & non-tender Neuro status: Neuro function grossly intact. Cardiovascular status: normal Respiratory status: normal Airway patency: baseline Mental status: baseline Post-Op hydration status: normal Vital Signs: Last Vital Signs Temp 99.2 F 04/13/21 07:50 Pulse 72 04/13/21 07:50 Resp 16 04/13/21 07:50 BP 114/78 04/13/21 07:50 Pulse Ox 97 04/13/21 07:50 Pain score (VAS): 0 I/O: Intake & Output 04/12/21 04/13/21 04/13/21 23:59 07:59 15:59 Intake Total 1999 1100 Output Total 2700 3100 Balance -700 -2000 Post-procedural complaints: none Patient feedback: Patient satisfied with anesthetic care.
[2021-04-13] MEDS: DOCUSATE SODIUM 100 MG CAPSULE PO ×2 (11:52→17:47)
[2021-04-13] MEDS: MULTIVIT/MIN/PREN/FOL AC/IRON TABLET 1 TAB PO (11:54)
[2021-04-13] MEDS: LANOLIN (LANSINOH) 7.5 GM CREAM 1 APPLIC TOPICAL (11:54)
[2021-04-14] MEDS: IBUPROFEN 600 MG TABLET PO ×2 (02:16→11:15)
[2021-04-14] MEDS: HYDROcodone/acetaminophen (*CRX) 5-325 MG TABLET 1 TAB PO ×2 (02:17→11:15)
[2021-04-14 05:50] VITALS: BP 136/78; PULSE 70; RESP 16; TEMP 36.5
[2021-04-14 06:00] VITALS: PULSE 70
[2021-04-14] MEDS: LABETALOL HCL 100 MG TABLET 200 MG PO (06:00)
--- NOTE | 2021-04-14 07:30 | PC.NURSE ---
PT introductions made and plan of care discussed per post , pain management, breast feeding, PIH symptoms, daily care activities and pending discharge to home. PT sole recipient of such instructions, PT received instructions per one to one discussion, mom baby care guide and demonstrations this shift. No barriers to learning identified at this time. PT verbalized understanding of such care.
[2021-04-14 08:45] VITALS: BP 120/71; PULSE 76; RESP 16; TEMP 37; O2SAT 99
--- NOTE | 2021-04-14 09:00 | P.PNOB_ITS ---
OB - PN: Subj Subjective Date/time seen: 04/14/21 09:00 No headache scotomata or RUQ pain. Ambulating well. No emesis or nausea. Patient comments: pain well controlled, tolerating diet and other (Decreasing lochia.) [place] baby status: doing well and nursing well OB - PN: Obj Data Labs CBC & Chem 7: 04/12/21 23:21 04/12/21 15:34 OB - PN A/P Plan day: 1 Plan: routine care Comments: Patient doing well. Blood pressures doing well on Labetolol. No pre-e symptoms or signs. Will discharge home. Discharge precautions given. Hypertension precautions discussed. Time Spent With Patient Time: Total time spent is greater than 50% in coordination of care (as documented) at patient's floor/unit and/or counseling patient: Exam Psych: Affect: normal affect Other: Abd: fundus firm below umbilicus, nontender Ext: nontender
--- NOTE | 2021-04-14 09:20 | PC.NURSE ---
Observed mother is able to independently latch infant with appropriate positioning/alignment. She denies any nipple discomfort, is feeding as required and waking infant to feed if needed. is more awake and nursing with good bursts of effective nursing. Mother continues to work to stimulate to keep awake and nursing. Mother began supplementing for weight loss of 9% and low output. has had several effective feedings in the past 24 hours, all feedings is now supplemented. Mother continues to pump after all feedings without difficulties or discomfort. Mother has a pump for home use, assisted mother with use before discharge. Discussed the difference of effective vs ineffective feeding. Reviewed infant requires supplementation after all feedings. is latching with good bursts of suckling, she is not feeding consistently with adequate milk transfer at this time and continues to need to be supplement after . Feeding plan discussed, Feeding Plan is for mother to put to breast each feeding for up to 15 minutes, then pace feed supplement 25-30 mls and pump for 10-15 minutes. Discussed increasing supplementation as infant requires to satisfactions. Reviewed paced feeding and suggested to stop when is satisfied, as long as infant is having required output. With increased supplementation may not want to feed for 4 hours. Mother will continue to pump on feeding schedule and will increase session to 20 minutes if pumping every 4 hours. If begins to nurse effectively with long draws and frequent swallowing noted, may decrease supplementation and discontinue pumping. Advised not to discontinue supplement until a pre/post feeding evaluation by infant PCP, Follow up RN or LC is completed. Mother states she feels confident to continue feeding plan at home. Reviewed transition to breast milk, signs of adequate intake, and engorgement/relief. Instructed to call ICP if intake/output less than required. Reviewed regular medications mother is taking. Information provided per Olga Lidia. Reviewed community resources on the [facility] website and in the Mom/Baby guide. Information on outpatient services provided. Mother has no further questions at this time.
--- NOTE | 2021-04-14 10:24 | PM.OBDSVD ---
DS: Admitting Diagnosis Discharge Date Apr 14, 2021. Admitting Diagnosis Pre-eclampsia with severe features. DS: Discharge Diagnosis Discharge Diagnosis (1) Pre-eclampsia affecting , antepartum: Code(s): O14.90 - Unspecified pre-eclampsia, unspecified trimester Status: Acute (2) Delivery normal: Code(s): O80 - Encounter for full-term uncomplicated delivery Status: Acute OB - DS: Summary Hospital Course Hospital Course: Patient admitted for [facility] for pre-eclampsia with severe features. She had Pitocin induction. She had a spontaneous vaginal delivery. She had Magnesium for seizure prophylaxis during active labor and 24 hours . She did require antihypertensive which did control blood pressure. day two no hypertension symptoms. Ambulating well. Had adequate pain control and was tolerating regular diet. OB Procedures : Ultrasound OB Procedures Intrapartum: Spontaneous Vag Delivery OB Procedures: : None Peripartum Data Infant Delivery Method: Natural Vaginal complications: none Status at Discharge Functional status at discharge: independent ambulation Time Spent with Patient Time attestation: Total time spent providing and/or coordinating discharge services: Exam Const: General: cooperative Orientation/consciousness: oriented to person, oriented to place and oriented to time HENMT: General nose exam: Normal external nose present Eyes: General: appearance normal, both eyes and all related structures Resp: Effort & Inspection: normal respiratory effort GI: Inspection: normal to inspection Skin: General skin exam: normal color Neuro: General: oriented to person, oriented to place and oriented to time Extrem: General: normal to inspection and no calf tenderness Psych: Appearance: grossly normal Mental Status: mental status grossly normal DS: Data Data Completed and Pending Pending studies at discharge: Pending at discharge 04/12/21 05:54 Surgical [PTH] Routine Discharge Plan Discharge Attending physician on discharge: Jed Bledsoe Consulting providers: Bam Vickers Discharging Clinician: Jed Bledsoe Anticipated Discharge Date/Time: 04/14/21 09:03 Patient Disposition: Home, Self-Care Activity: may shower, no straining and pelvic rest Diet: regular Discharge Instructions: Pelvic rest for 4-6 weeks. May take over the counter Ibuprofen or Tylenol for pain. Call if saturating more than a pad an hour, leg redness, pain and swelling, temperature>100.4. No strenuous activity. Call for headache, white spots in eyes or right upper quadrant pain. Patient Instructions: Antibiotic Form Stand Alone Forms: General Discharge Information Follow-up/Referrals: Jed Bledsoe MD [Physician] - 1 Week Discharge Medications: Discontinued prenat.vits,brian,ggf-qeai-tlseb Tablet 1 tablet PO DAILY RF: 0 omega-3 fatty acids [Fish Oil Concentrate] 1,000 mg capsule 1,000 mg PO DAILY RF: 0 Date of admission: 04/11/21 13:03 Primary Care Provider: Osvaldo,Nani Loya Admitting Provider: Jed Bledsoe Attending physician on admission: Jed Bledsoe Condition: Stable
[2021-04-14 11:00] VITALS: PULSE 68; RESP 16; O2SAT 99
[2021-04-14] MEDS: MULTIVIT/MIN/PREN/FOL AC/IRON TABLET 1 TAB PO (11:15)
[2021-04-14] MEDS: DOCUSATE SODIUM 100 MG CAPSULE PO (11:15)
[2021-04-14 12:56] VITALS: BP 123/75; PULSE 68; RESP 16; TEMP 37.3; O2SAT 99
--- NOTE | 2021-04-14 14:30 | PC.NURSE ---
PT received discharge instructions per protocol and verbalized understanding of such care.
--- NOTE | 2021-04-14 15:13 | PC.NURSE ---
PT discharged to home ambulatory accompanied by spouse and to waiting car, Follow up appts confirmed
[2021-04-15 09:45] VITALS: BP 144/80; PULSE 70; RESP 20; TEMP 36.9; O2SAT 99
== END 2021-04-14 15:13 | disposition home or self-care (01) | DRG 768 ==
LOC: ANHOBOP 13:08 → ANHOBPP 13:13 → ANHOBOP 17:03 → ANHOBPP 17:03 → ANHLDR 19:08 → ANHOB2 04-12 08:55
PROVIDERS: Admitting Provider Obstetrics & Gynecology; PCP Family Medicine; Visit Provider Obstetrics & Gynecology
DX: O14.14 Severe pre-eclampsia complicating childbirth (principal); Z37.0 Single live birth; Z3A.38 38 weeks gestation of pregnancy; O70.20 Third degree perineal laceration during delivery, unspecified; R06.82 Tachypnea, not elsewhere classified
CPT/HCPCS: 36415; 59025; 71045; 80053; 81003; 82570; 83735; 84156; 84450; 84460; 84550; 85025; 85027; 85055; 85384; 85610; 85730; 86592; 86850; 86900; 86901; 87086; 87088; 88307; A9270; J2590; J2795; J3010; J3475; J7120

== ENCOUNTER 2021-05-10 11:19 | Outpatient (RCR) | payer BC, SELFPAY ==
--- NOTE | 2021-05-10 12:00 | PC.NURSE ---
IN 1005 OUT 1100 HISTORY: Pt. delivered at [facility] at 38 weeks. had no complications after delivery. Mother had complications after delivery of preeclampsia and on Mag Sulfate for 24 hours. Mother and infant discharged on a feeding plan with pumping and supplementation after each feeding due to ineffective feeding and weight loss. Infant is now 30 days old. appears to be well cared for. Infant last seen by ICP at 1 week check. Mother reports: Currently at 8 wets per day and 1 yellow seedy stools per day. weight: 5#11 Discharge weight: 5#3 Last Weight:5#11 at 1 week check up Mother puts to breast every 2-3 hours for 15-30 minutes. Mother reports infant will eagerly latch with minimal tenderness for most feedings, infant is eager the first 5 minutes on each breast, then begins to slow and spends the lat 5-10 minutes waking and relatching infant. Infant will be supplemented after feedings if she is not satisfied, mother states more than half of feedings infant is supplemented with 2 oz of formula. Mother reports eagerly bottle feds without issue. Mother has not been pumping after feedings due to lack of time and length of feeding process. Mother is tearful and reports exhaustion with current feeding schedule. Mother wishes: To spend less time pumping and bottle feeding. OBSERVATION: Pre feeding weight: 3360 Post feeding weight: 3369 Change: 09 after 25 minutes of feeding Tongue is able to move tongue freely past gum ridge, both lips flange easily. Mother has everted nipples. Nipple skin is intact and slightly reddened on both nipples. Mother puts to breast in cross cradle with a shallow latch. Reviewed positioning/alignment in cross cradle, holding breast in ?U? hold and guided asymmetrical latch on. Reviewed rational for each. able to latch correctly within a few attempts. Infant nursed eagerly with steady draws and occasional swallowing noted, some pausing noted. Reviewed signs of a correct latch, effective nursing and suck swallow ratio. Suggested mother stimulate while feeding to increase stimulation for milk supply, for increased intake and to assist with maintaining deep latch. would slip to shallow latch causing tenderness. Demonstrated how to adjust latch more deeply while feeding as needed. Mother reports she can feel the difference in latch with less tenderness. quickly ( within 3-5 minutes) began to slow with suck/swallow, needing constant stimulation to continue to nurse effectively. After 5 minutes held nipple in her mouth with occasional swallowing noted. removed from breast and stimulate to wake to return to breast. Infant repeated same of eager bursts and then falling asleep. will slip to shallow latch with long pausing and when she begins to nurse it will cause mother discomfort. Demonstrated how to adjust latch more deeply while feeding. Suggested use of a nipple shield to assist with more consistent suck swallow as she is accustom to bottle feeding. With shield in place was able to latch deeply to shield and nursed the same as without. Infant did not slip to shallow latch while nursing with nipple shield. Discussed the difference of effective vs ineffective feeding. Reviewed infant is latching with good burst of suckling, she is not feeding consistently with adequate milk transfer at this time and continues to need supplement after . Feeding options discussed: *Mother to put to breast each feeding for up to 15 minutes, then pace feed supplement as much as infant desires, then for 10-15 minutes. *Mother can put infant to breast each feeding and pump every other f
== END 2021-05-26 12:42 | disposition home or self-care (01) ==
LOC: ANHOBOP 11:19
PROVIDERS: PCP Family Medicine; Visit Provider Pediatrics
DX: Z39.1 Encounter for care and examination of lactating mother (principal)
CPT/HCPCS: 99212; G0463

== ENCOUNTER 2022-05-03 10:04 | Outpatient (CLI) | payer BC, SELFPAY ==
--- NOTE | ~2022-05-03 | US_ITS ---
EXAMINATION: US OB <= 14 weeks fetus DATE: 05/03/2022 10:50 INDICATION: Establish dating of first trimester . TECHNIQUE: Real-time pelvic ultrasound utilizing transabdominal probe was performed. The pilar kebede radiologist was not present for the study. COMPARISON: None. FINDINGS: The uterus measures 11.1 x 7.3 x 8.4 cm. There is an intrauterine gestational sac. A yolk sac and fe aziza pole are identified. The crown rump length measures 4.0 cm, which correlates with an estimated ge stational age of 11 weeks and 0 days. heart motion is identified measuring 175 beats per minute (bpm) by M-mode Doppler. The placenta appears to be developing posteriorly. There is a 1.5 x 0.7 x 2 .5 similar anechoic subchorionic hematoma along the caudal margin of the gestational sac. The right ovary is not visualized. The left ovary measures 3.2 x 1.8 x 1.5 cm. Vascular flow identifi ed in the left ovary on color Doppler. There is no free fluid in the pelvis. IMPRESSION: 1. Single living fetus with heart rate of 175 bpm. 2. Gestational age by ultrasound of 11 weeks 0 day(s) +/- 7 day(s) with ultrasound estimated date of delivery (RUSSEL) of 11/22/2022. Reviewed, dictated and finalized at location A. PI ARCHITECT IMPRESSION: 1. Single living fetus with heart rate of 175 bpm. 2. Gestational age by ultrasound of 11 weeks 0 day(s) +/- 7 day(s) with ultras ound estimated date of delivery (RUSSEL) of 11/22/2022.
[2022-05-03 11:40] LABS: Basophils Absolute Auto 0.1 K/mm3 (0.0-0.1); Basophils Percent Auto 0.5 % (0.2-1.2); Eosinophils Absolute Auto 0.1 K/mm3 (0-0.3); Eosinophils Percent Auto 1.1 % (0-4.4); Hematocrit 39.5 % (37.0-47.0); Hemoglobin 13.6 g/dL (12.0-15.0); Immature Granulocyte Absolute 0.04 K/mm3 (0.00-0.031); Immature Granulocyte Percent A 0.4 % (0-0.5); Lymphocytes Percent Auto 20.3 % (18.3-44.2); Mean Corpuscular HGB Conc 34.4 g/dl (32-36); Mean Corpuscular Hemoglobin 31.9 pg (26-34); Mean Corpuscular Volume 92.5 fl (80-100); Mean Platelet Volume 9.4 fl (7.4-10.4); Monocytes Absolute Auto 0.5 K/mm3 (0.1-0.6); Monocytes Percent Auto 5.1 % (2.6-8.5); Neutrophils Absolute Auto 7.5 K/mm3 (1.3-6.7); Neutrophils Percent Auto 72.6 % (45.5-73.1); Platelet Count Result 328 k/mm3 (150-375); Red Blood Count 4.27 M/mm3 (4.2-5.4); Red Cell Distribution Width 11.6 % (11.5-14.5); White Blood Count 10.4 K/mm3 (4.5-10.0)
[2022-05-03 11:51] LABS: Add Urine Microscopic? NO; Appearance Urine Clear (Clear); Bilirubin Urine Negative (Negative); Blood Urine Negative (Negative); Color Urine Light Yellow (Yellow); Glucose Urine UA Negative (Negative); Ketones Urine Negative (Negative); Leukocyte Esterase Ur Negative LEU/UL (NEGATIVE); Nitrate Urine Negative (Negative); Protein Urine Negative (Negative); Specific Grav Ur 1.015 (1.001-1.035); Urobilinogen Urine 0.2 mg/dL (<2.0)
[2022-05-03 12:13] LABS: Vitamin D 25 Hydroxy 54.1 ng/mL
[2022-05-03 12:22] LABS: Thyroid Stimulating Hormone 0.843 uIU/mL (0.465-4.680)
[2022-05-03 12:39] LABS: HIV 1/2 Ab P24 Ag Result Negative (Negative); Hepatitis B Surface Antigen Negative (Negative); Rubella IgG Antibody 34.4 IU/ML
[2022-05-03 12:48] LABS: Hepatitis C Virus Antibody Negative (Negative)
[2022-05-03 15:50] LABS: Rapid Plasma Reagin Non-Reactive (NonReactive)
[2022-05-10 06:55] LABS: Hematocrit 39.8 % (35.0-45.0); Hemoglobin 13.7 g/dL (11.7-15.5); MCH 31.9 pg (27.0-33.0); MCV 92.6 fL (80.0-100.0)
== END 2022-05-03 10:05 | disposition home or self-care (01) ==
LOC: ANHIMG 10:06
PROVIDERS: PCP Family Medicine; Visit Provider Obstetrics & Gynecology
DX: Z34.90 Encounter for supervision of normal pregnancy, unspecified, unspecified trimester (principal); Z3A.00 Weeks of gestation of pregnancy not specified; N91.2 Amenorrhea, unspecified
CPT/HCPCS: 36415; 76801; 81003; 82306; 83021; 84443; 85025; 86592; 86703; 86762; 86787; 86803; 86850; 86900; 86901; 87086; 87088; 87340; G0432

== ENCOUNTER 2022-08-22 09:28 | Outpatient (CLI) | payer BC, SELFPAY ==
[2022-08-22 11:17] LABS: Basophils Absolute Auto 0.1 K/mm3 (0.0-0.1); Basophils Percent Auto 0.5 % (0.2-1.2); Eosinophils Absolute Auto 0.1 K/mm3 (0-0.3); Eosinophils Percent Auto 0.7 % (0-4.4); Hematocrit 37.2 % (37.0-47.0); Hemoglobin 12.4 g/dL (12.0-15.0); Immature Granulocyte Absolute 0.08 K/mm3 (0.00-0.031); Immature Granulocyte Percent A 0.7 % (0-0.5); Lymphocytes Absolute Auto 1.93 K/mm3 (0.9-3.2); Mean Corpuscular HGB Conc 33.3 g/dl (32-36); Mean Corpuscular Volume 95.9 fl (80-100); Monocytes Absolute Auto 0.5 K/mm3 (0.1-0.6); Monocytes Percent Auto 4.2 % (2.6-8.5); Neutrophils Absolute Auto 8.1 K/mm3 (1.3-6.7); Neutrophils Percent Auto 75.9 % (45.5-73.1); Platelet Count Result 301 k/mm3 (150-375); Red Blood Count 3.88 M/mm3 (4.2-5.4); Red Cell Distribution Width 11.8 % (11.5-14.5); White Blood Count 10.7 K/mm3 (4.5-10.0)
[2022-08-22 11:33] LABS: Glucose 1 Hour PP 50gm Dose 92 mg/dL
== END 2022-08-22 09:29 | disposition home or self-care (01) ==
LOC: ANHLAB 09:29
PROVIDERS: PCP Family Medicine; Visit Provider Registered Nurse
DX: Z34.90 Encounter for supervision of normal pregnancy, unspecified, unspecified trimester (principal); Z3A.00 Weeks of gestation of pregnancy not specified
CPT/HCPCS: 36415; 82947; 85025

== ENCOUNTER 2022-09-21 09:38 | Outpatient (CLI) | payer BC, SELFPAY ==
[2022-09-21 10:30] LABS: Basophils Absolute Auto 0.1 K/mm3 (0.0-0.1); Basophils Percent Auto 0.5 % (0.2-1.2); Eosinophils Absolute Auto 0.1 K/mm3 (0-0.3); Eosinophils Percent Auto 0.7 % (0-4.4); Hematocrit 36.5 % (37.0-47.0); Hemoglobin 12.5 g/dL (12.0-15.0); Immature Granulocyte Absolute 0.04 K/mm3 (0.00-0.031); Immature Granulocyte Percent A 0.3 % (0-0.5); Lymphocytes Absolute Auto 2.08 K/mm3 (0.9-3.2); Lymphocytes Percent Auto 17.5 % (18.3-44.2); Mean Corpuscular HGB Conc 34.2 g/dl (32-36); Mean Corpuscular Hemoglobin 32.3 pg (26-34); Mean Corpuscular Volume 94.3 fl (80-100); Mean Platelet Volume 9.9 fl (7.4-10.4); Monocytes Absolute Auto 0.8 K/mm3 (0.1-0.6); Monocytes Percent Auto 6.5 % (2.6-8.5); Neutrophils Absolute Auto 8.9 K/mm3 (1.3-6.7); Neutrophils Percent Auto 74.5 % (45.5-73.1); Platelet Count Result 289 k/mm3 (150-375); Red Blood Count 3.87 M/mm3 (4.2-5.4); White Blood Count 11.9 K/mm3 (4.5-10.0)
[2022-09-21 11:19] LABS: HIV 1/2 Ab P24 Ag Result Negative (Negative)
[2022-09-21 12:41] LABS: Rapid Plasma Reagin Non-Reactive (NonReactive)
== END 2022-09-21 09:39 | disposition home or self-care (01) ==
LOC: ANHLAB 09:39
PROVIDERS: PCP Family Medicine; Visit Provider Obstetrics & Gynecology
DX: Z34.83 Encounter for supervision of other normal pregnancy, third trimester (principal); Z3A.00 Weeks of gestation of pregnancy not specified
CPT/HCPCS: 36415; 85025; 86592; 86703; G0432

== ENCOUNTER 2022-11-25 22:38 | Inpatient (IN) | payer BC, SELFPAY ==
[2022-11-26] VITALS (86 sets, daily range): BP systolic 76–134; BP diastolic 51–84; PULSE 50–156; RESP 16; TEMP 36.5–37.2; O2SAT 96–100; BMI 25.9
--- NOTE | 2022-11-26 00:36 | WPDANESEPP ---
Anes - Eval Pre Procedure Procedure: labor epidural Date/Time: 11/26/22 00:36 Surgeon: charo Preop Diagnosis: pain during labor Pre Op Diagnosis: Labor Patient Data Age: 27 Gender: F Height: Weight: Allergies Allergy/AdvReac Type Severity Reaction Status Date / Time No Known Allergies Allergy Verified 11/21/22 15:31 Home Medications Medication Instructions Recorded Confirmed Type omega 7-qey-ili-fish oil 60 mg-90 1 cap PO DAILY 08/31/21 11/19/22 History mg-500 mg capsule prenat.vits,brian,nio-ixji-hryrf 1 tablet PO DAILY 10/23/22 11/19/22 History aspirin 81 mg tablet,delayed 81 mg PO DAILY 10/27/22 11/19/22 History release famotidine 20 mg tablet (Pepcid) 20 mg PO DAILY 10/27/22 11/19/22 History Patient hx anesthesia problems: none Family hx anesthesia problems: none Results Review: All pre-operative results and documents have been reviewed as part of the pre-operative evaluation. PMFSH Past Medical History Medical History PIH ( induced hypertension) Vaginal delivery Surgical History Surgical History [place] teeth extracted Family History Family History Father Diabetes mellitus Chronic obstructive pulmonary disease Grandparent Alzheimer disease A-fib S/P CABG x 4 Hypertension Lung cancer Mother Hypertension Social History Social History Smoking status: Never smoker Alcohol intake: former Alcohol use details: Not since Substance use: never Lack of Transportation: No Lack of Food: Never True Current Housing: I Have Housing Concerned About Future Housing: No Difficulty Paying Gas/Electric Bills: No Difficulty Paying for Meds: No Currently Unemployed: No Education: Master's Degree or Higher Difficulty w/ Childcare or Family Care: No Living arrangements: with family Occupation/Education: occupation Gender identity (if verbalized by the patient): Female Sexual Orientation (if Verbalized by the Patient): Straight or Heterosexual Spiritual care concerns: No Agree to blood products: Yes Exam Day of Procedure 11/26/22 00:36
[2022-11-26 00:57] LABS: Basophils Absolute Auto 0.1 K/mm3 (0.0-0.1); Basophils Percent Auto 0.6 % (0.2-1.2); Eosinophils Absolute Auto 0.1 K/mm3 (0-0.3); Eosinophils Percent Auto 0.6 % (0-4.4); Hematocrit 38.6 % (37.0-47.0); Hemoglobin 13.4 g/dL (12.0-15.0); Immature Granulocyte Absolute 0.03 K/mm3 (0.00-0.031); Immature Granulocyte Percent A 0.3 % (0-0.5); Lymphocytes Absolute Auto 4.23 K/mm3 (0.9-3.2); Lymphocytes Percent Auto 38.2 % (18.3-44.2); Mean Corpuscular HGB Conc 34.7 g/dl (32-36); Mean Corpuscular Hemoglobin 31.3 pg (26-34); Mean Corpuscular Volume 90.2 fl (80-100); Mean Platelet Volume 10.8 fl (7.4-10.4); Monocytes Absolute Auto 0.8 K/mm3 (0.1-0.6); Monocytes Percent Auto 7.2 % (2.6-8.5); Neutrophils Absolute Auto 5.9 K/mm3 (1.3-6.7); Neutrophils Percent Auto 53.1 % (45.5-73.1); Platelet Count Result 246 k/mm3 (150-375); Red Blood Count 4.28 M/mm3 (4.2-5.4); White Blood Count 11.1 K/mm3 (4.5-10.0)
[2022-11-26] MEDS: LACTATED RINGERS 1,000 ML 125 ML IV CONT ×3 (01:00→02:57)
--- NOTE | 2022-11-26 01:10 | LDADM ---
This patient, Gabriella Mello, was admitted to Labor/Delivery/Recovery 106 on 11/25/22 at 22:38. Plans for labor, pain management and were discussed with patient. Patient/family oriented to hospital policies and general routines including ID bracelet, bed and alarms, visiting hours, pain management, procedures, bathroom and other care routines, personal items, smoking policy, room service/diet and guest tray routines, infant security routines, and visiting hours. Patient/Family are encouraged to report perceived risks to care and to ask questions if they do not understand what they are told or what they should do. See OBIX for further documentation.
--- NOTE | 2022-11-26 04:54 | P.PCNOB_ITS ---
OB - Delivery Note Procedure Delivery monitor: External FHT and External Uterine Route of delivery: Episiotomy description: None Laceration Description: Perineal - 2nd Degree Delivery repair: chromic Specimen: No Quantitative Blood Loss (ml): 200 Anesthesia type: Epidural Disposition: Floor Complications: None Narrative: patient prepped and draped usual manner for this procedure. Maternal expulsive efforts after AROM was performed readily delivered vertex over intact perineum. Nuchal cord was noted and readily reduced. Further effort delivered the rest of baby without difficulty, cord was clamped and cut, baby was placed on maternal abdomen. Pitocin infusion was begun and placenta delivered without difficulty. Uterus was well contracted with minimal bleeding. Second-degree laceration was noted and approximated using 2-0 chromic in running interlocking manner to approximate the vaginal tissue which was rendered hemostatic, and the subcuticular layer to approximate the peritoneum. This point the procedure was considered terminated with immediate postoperative condition of mother and baby both excellent. [place] Baby Weeks of gestation at delivery: 40 gender: Female presentation: vertex position: Right Occiput Anterior Placenta delivery description: Spontaneous Cord Vessel Description: 3 Vessels, Nuchal Cord and Reduced
--- NOTE | 2022-11-26 04:54 | WPDHPUPDATE1 ---
History and Physical Update Update Date/Time: 11/26/22 04:54 History and Physical has been reviewed, including an updated exam of the patient. There are NO changes in the patient's condition. Risks, benefits, and alternatives have been discussed and questions answered. Patient agrees to proceed with procedure.
--- NOTE | 2022-11-26 04:54 | WPDOBADMIT ---
Obstetrics - Admit Note Admission Note: record reviewed. No pertinent additions to the history and/or any subsequent changes in the physical findings that are not consistent with the expected course of the were found. Additions to the history and/or subsequent changes in the physical findings follow. None.
[2022-11-26] MEDS: OXYTOCIN 30 UNITS/NS 500 ML 30 UNITS/500 ML BAG 125 UNITS IV CONT (05:16)
[2022-11-26] MEDS: DOCUSATE SODIUM 100 MG CAPSULE PO (08:10)
[2022-11-26] MEDS: MULTIVIT/MIN/PREN/FOL AC/IRON TABLET 1 TAB PO (08:30)
[2022-11-26] MEDS: IBUPROFEN 600 MG TABLET PO ×2 (08:30→22:34)
--- NOTE | 2022-11-26 09:39 | OBPPTRN ---
0810 Patient transferred to post room #290 via W/C. Support person present. Oriented to unit, room, information board, rooming in, admission packet and security measures. Patient verbalizes understanding.
[2022-11-26] MEDS: LANOLIN (LANSINOH) 7.5 GM CREAM 1 APPLIC TOPICAL (09:45)
--- NOTE | 2022-11-26 22:19 | PC.NURSE ---
11/26/2022 at 2030 Patient viewed the discharge video Mother & Baby Care, The First Two Weeks . Patient was given the opportunity and encouraged to ask questions. Patient verbalized understanding of information shared and has been given the mother/baby guide for home reference.
[2022-11-27 04:15] LABS: Hematocrit 33.5 % (37.0-47.0); Hemoglobin 11.3 g/dL (12.0-15.0)
[2022-11-27] MEDS: IBUPROFEN 600 MG TABLET PO (08:28)
[2022-11-27] MEDS: MULTIVIT/MIN/PREN/FOL AC/IRON TABLET 1 TAB PO (08:28)
[2022-11-27] MEDS: DOCUSATE SODIUM 100 MG CAPSULE PO (08:28)
[2022-11-27 08:30] VITALS: BP 108/53; PULSE 63; RESP 18; TEMP 36.9; O2SAT 100
[2022-11-27 09:44] LABS: Rapid Plasma Reagin Non-Reactive (NonReactive)
--- NOTE | 2022-11-27 11:46 | WPDANLDPN2 ---
Anes-Prog Note L&D Date/Time: 11/27/22 11:46 Neuro status: Neuro function grossly intact. Vital Signs: Last Vital Signs Temp 36.9 C 11/27/22 08:30 Pulse 63 11/27/22 08:30 Resp 18 11/27/22 08:30 BP 108/53 L 11/27/22 08:30 Pulse Ox 100 11/27/22 08:30 O2 Del Method Room Air 11/26/22 16:20 Pain score (VAS): 0 Patient feedback: Patient satisfied with anesthetic care.
--- NOTE | 2022-11-27 11:50 | P.PNOB_ITS ---
OB - PN: Subj Subjective Date/time seen: 11/27/22 11:50 Patient comments: pain well controlled, tolerating diet and other (Decreasing lochia.) baby status: doing well and nursing well [place] feeding status: exclusively breast feeding OB - PN: Obj Data Labs 11/27/22 03:48 Labs: Laboratory Results - last 24 hr 11/26/22 11/27/22 00:34 03:48 Hgb 11.3 L Hct 33.5 L RPR Non-reactive OB - PN A/P Assessment and Plan (1) Vaginal delivery: Code(s): O80 - Encounter for full-term uncomplicated delivery Status: Acute Assessment and Plan: She is doing well. Requests discharge home. Discharge precautions discussed. Plan day: 1 Plan: routine care Comments: Patient doing well. Time Spent With Patient Time: Total time spent is greater than 50% in coordination of care (as documented) at patient's floor/unit and/or counseling patient: Exam Psych: Affect: normal affect Other: Abd: fundus firm below umbilicus, nontender Perineum: healing Ext: nontender
--- NOTE | 2022-11-27 11:54 | PM.OBDSVD ---
DS: Admitting Diagnosis Discharge Date 11/27/2022 Admitting Diagnosis Labor DS: Discharge Diagnosis Discharge Diagnosis Plan Delivery OB - DS: Summary Hospital Course Hospital Course: She was admitted in active labor. She progressed to complete and had an uncomplicated vaginal delivery. She did well , baby was doing well and nursing well. She requested discharge to home on day one. OB Procedures : Ultrasound OB Procedures Intrapartum: Spontaneous Vag Delivery OB Procedures: : None Peripartum Data Infant Delivery Method: Natural Vaginal Laceration Description: Perineal - 2nd Degree complications: none Status at Discharge Functional status at discharge: independent ambulation Time Spent with Patient Time attestation: Total time spent providing and/or coordinating discharge services: Exam Const: General: cooperative Orientation/consciousness: oriented to person, oriented to place and oriented to time HENMT: Face/Nose/Sinus: Normal external nose present Eyes: General: appearance normal, both eyes and all related structures Resp: Effort & Inspection: normal respiratory effort GI: Inspection: normal to inspection Skin: General skin exam: normal color Neuro: General: oriented to person, oriented to place and oriented to time Extrem: General: normal to inspection and no calf tenderness Psych: Appearance: grossly normal Mental Status: mental status grossly normal DS: Data Data Completed and Pending Labs on day of discharge: Labs from last 24 hours 11/27/22 11/26/22 03:48 00:34 Hgb 11.3 L Hct 33.5 L RPR Non-reactive Discharge Plan Discharge Attending physician on discharge: Jed Bledsoe Consulting providers: Oly Sherwood Discharging Clinician: Jed Bledsoe Anticipated Discharge Date/Time: 11/27/22 11:52 Patient Disposition: Home, Self-Care Activity: may shower and pelvic rest Diet: regular Discharge Instructions: Take daily vitamin. Patient Instructions: Antibiotic Form, Vaginal Delivery (DC) Stand Alone Forms: General Discharge Information Follow-up/Referrals: Jed Bledsoe MD [Physician] - 4 Weeks (Call for appointment) Discharge Medications: No Action aspirin 81 mg tablet,delayed release (DR/EC) 81 mg PO DAILY famotidine [Pepcid] 20 mg tablet 20 mg PO DAILY omega 0-mwa-jhb-fish oil 60-90-500 mg capsule 1 cap PO DAILY #2 Tablet 1 tablet PO DAILY Date of admission: 11/25/22 22:38 Primary Care Provider: Osvaldo,Nani Loya Admitting Provider: Jed Bledsoe Attending physician on admission: Jed Bledsoe Condition: Stable
[2022-11-28 09:32] VITALS: BP 105/69; PULSE 65; RESP 18; TEMP 36.9; O2SAT 100
== END 2022-11-27 13:33 | disposition home or self-care (01) | DRG 807 ==
LOC: ANHLDR 11-26 00:23 → ANHOB2 11-26 08:22
PROVIDERS: Admitting Provider Obstetrics & Gynecology; PCP Family Medicine; Visit Provider Obstetrics & Gynecology
DX: O69.81X0 Labor and delivery complicated by cord around neck, without compression, not applicable or unspecified (principal); Z37.0 Single live birth; O70.1 Second degree perineal laceration during delivery; Z3A.40 40 weeks gestation of pregnancy
CPT/HCPCS: 36415; 85014; 85018; 85025; 86592; 86850; 86900; 86901; A9270; J2590; J2795; J7120

== ENCOUNTER 2025-05-12 09:18 | Outpatient (CLI) | payer BC, SELFPAY ==
--- OUTSIDE RECORDS SUMMARY | 2025-05-12 09:33 | XMS_ITS | Clinical Summary ---
Author Organization [facility] Address [address] [place] [address] Phone Care Team Providers Care Trimmer [employer] Name Role Phone Unavailable Primary Care Provider Unavailabl e Social History Tobacco Use Types Packs/Day Years Used Date Smoking Tobacco: Never Assessed Comments Unknown Sex and Gender Information Value Date Recorded Sex Assigned at Not on file Legal Sex Female 10:53 AM CDT Gender Identity Not on file Sexual Orientation Not on file Plan of Treatment Health Maintenance Due Date Last Done Comments HPV/Cotest (21-29) 2015 CERVICAL CANCER SCREENING 2024 HPV/Cotest (30-65) 2024 PAP SMEAR 2024 INFLUENZA VACCINE (#1) 2024 04/02/2020, 2013 DTAP/TDAP/TD VACCINES (9 - T d or Tdap) 03/14/2031 03/14/2021, 01/25/2017, 09/28/2006, Additional history exists HEPATITIS B VACCINES Completed 1994, 1994, 1994 HPV VACCINES Completed 06/30/2008, 12/12, 10/30/2007 Insurance [facility] ACCESS CHOICE [facility]
--- OUTSIDE RECORDS SUMMARY | 2025-05-12 09:33 | XMS_ITS | Clinical Summary ---
Author Organization [facility] Healthcare Address [address] [place] [address] Care Team Providers Care Machine Cell Tuber Name Role Phone Jed Bledsoe MD Unavailable [phone] Allergies No known active allergies Medications prenat.vits,brian, box-wanh-zfajm tablet Take by mouth Active fish oil-dha-epa 1,200144-216 mg capsule Take by mouth Active Active Problems Problem Noted Date Diagnosed Date Perennial allergic rhinitis 01/31/2022 Assessment & Plan (01/31/2022 1:14 PM CDT): Referred to director of real estate for further eval/mgmt. 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 Keep stafnord appt. Sinus arrhythmia seen on electrocardiogram 08/30/2017 09/29/2020 Fatigue 08/29/2017 09/29/2020 Heart palpitations 08/29/2017 Immunizations Immunization Administration Dates Next Due DTaP 08/11/1999, 6,1994,09/25,1994 HPV, Quadrivalent 06/30/2008,12/30/2007,10/30/19 08 Hep A, Pediatric 09/28/2006,08/26/2004 Hep B, Adolescent or Pediatric 1994,1994,1994 Hib (HbOC) 09/01/1995, 5,1994,06/24 Influenza, Quadrivalent, Spl it, Preservative Free, Intramuscular 04/02/2020 Influenza, Trivalent, Recomb inant, Egg Free, Preservative Free, Antibiotic Free, IM (FLUBLOK) 02/26/2014 Influenza, Unspecified 01/31/2022(Deferr ed: Patient Refused),07/12/2021(Deferred: Patient Refused) MMR 12/29/2014,08/11/1999,05/12/1995 Meningococcal MCV4P (Menactra) 10/25/2012 Meningococcal Polysaccharide (Menomune) 10/30/2007 Moderna SARS-CoV-2 Monovalen t Vaccination (12+ YRS) 03/28/2021 OPV 08/11/1999, 6,1994,09/25,1994 Tdap 03/14/2021,01/25/2017,09/28/2006 Family History Medical History Relation Name Comments Diabetes Father Lung cancer Maternal Grandmother Cancer -lung; Hypertension Mother Hypertension; Arthritis Other 1 Cancer Other 1 Hypertension Other 1 Family history of Hypertension; Heart attack Other 2 Family history of Myocardial infarction; Stroke Other 3 Family history of Stroke; Lung cancer Other 4 Family history of Cancer, lung; Thyroid disease Other 5 Family histo ry of Thyroid disorder; Relation Name Status Comments Father Maternal Grandmother Mother Other 1 Other 2 Other 3 Other 4 Other 5 Social History Tobacco Use Types Packs/Day Years Used Date Smoking Tobacco: Never Smokeless Tobacco: Never Alcohol Use Standard Drinks/Week Comments No 0 (1 standard drink = 0.6 oz pur e alcohol) PHQ-2 Answer Date Recorded PHQ-2 Total Score (If total score is 3 or more points, staff should administer the PHQ-9) 0 01/31/2022 Personal Safety Answer Date Recorded Have you ever been in or are you currently in a harmful physical or emotional relationship or is someone making you feel afraid or unsafe? 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 Gender Identity Not on file Sexual Orientation Not on file Obstetrics History Para Term AB IAB SAB Ectopic Multiple Livin g Live Births 2 Date Outcome GA Total Labor Labor/2nd/3rd Weight Sex Type Anes PTL Es A1 A5 Name Clin Last Filed Vital Signs Vital Sign Reading Time Taken Comments Blood Pressure 106/69 08/23/2022 2:10 PM CDT Pulse 74 08/23/2022 2:10 PM CDT Temperature 36.4 C (97.6 F) 08/23/2022 6:44 AM CDT Respiratory Rate 16 08/23/2022 6:44 AM CDT Oxygen Saturation 100% 08/23/2022 6:44 AM CDT Inhaled Oxygen Concentration - - Weight 63.5 kg (140 lb) 08/23/2022 2:10 PM CDT Height 160 cm (5' 3) 08/23/2022 2:10 PM CDT Body Mass Index 24.8 08/23/2022 2:10 PM CDT Plan of Treatment Health Maintenance Due Date Last Done Comments Hepatitis C Screening 1994 Cervical Cancer Screening 08/31/2022 08/31/2021, Depression Screening 01/31/2023 01/31/2022, 09/28/2020, 03/29/2018, Additional history exists Regular Well Visit/Exam 18-64 01/31/2023 01/31/2022, 09/28/2020, 03/29/2018, Additional history exists Covid-19 Vaccine ( season) 2025 03/28/2021 DTaP/Tdap/Td Vaccine (9 - Td or Tdap) 03/14/2031 03/14/2021, 01/25/2017, 09/28/2006, Additional history exists Hepatitis B Screening Completed 1994 , 1994, 1994 HPV Vaccines Completed 06/30/2008, 12/12, 10/30/2007 Influenza Vaccine Discontinued 04/02/2020, 02/26/2014 Pneumococcal vaccine <65 Aged Out No longer eligible based on patient's age to complete this topic Varicella Vaccines Discontinued Procedures Procedure Name Priority Date/Time Associated Diagnosis Comments HM PAP SMEAR WITH HPV Routine 08/31/2021 from Last 3 Months or Most Recently Relevant to Health Maintenance Results * HM PAP SMEAR WITH HPV (08/31/2021) us Generic External Data Provider HEALTH MAINTENANC E Final Result from Last 3 Months or Most Recently Relevant to Health Maintenance Insurance [employer] Care Teams Machine Cell Tuber Relationship Specialty Start Date End Date Jed Bledsoe MD [id number] [facility] [address] [facility] [address] [place] [address] Referring Physician Obstetrics and Gynecology 09/28/20
[2025-05-12 09:53] LABS: Hematocrit 37.4 % (37.0-47.0); Hemoglobin 12.9 g/dL (12.0-15.0); Mean Corpuscular HGB Conc 34.5 g/dl (32-36); Mean Corpuscular Hemoglobin 31.6 pg (26-34); Mean Corpuscular Volume 91.7 fl (80-100); Platelet Count Result 254 k/mm3 (150-375); Red Blood Count 4.08 M/mm3 (4.2-5.4); White Blood Count 6.0 K/mm3 (4.5-10.0)
[2025-05-12 10:18] LABS: Add Urine Microscopic? NO; Appearance Urine Clear (Clear); Glucose Urine UA Negative (Negative); Leukocyte Esterase Ur Negative LEU/UL (Negative); Nitrate Urine Negative (Negative); Specific Grav Ur 1.006 (1.001-1.035)
[2025-05-12 10:43] LABS: Syphilis IgG/IgM Antibody Non-Reactive (Nonreactive)
[2025-05-12 10:46] LABS: Thyroid Stimulating Hormone 0.592 uIU/mL (0.465-4.680)
[2025-05-12 10:55] LABS: HIV 1/2 Ab P24 Ag Result Negative (Negative)
== END 2025-05-12 09:19 | disposition home or self-care (01) ==
LOC: ANHLAB 09:19
PROVIDERS: Visit Provider Obstetrics & Gynecology
DX: Z34.90 Encounter for supervision of normal pregnancy, unspecified, unspecified trimester (principal)
CPT/HCPCS: 36415; 81003; 83020; 84443; 85027; 85660; 86593; 86703; 86762; 86803; 86850; 86900; 86901; 87086; 87340; G0432